=== PATIENT | male | born 1980 | race Caucasian/White ===

== ENCOUNTER 2025-02-23 12:21 | Outpatient (CLI) | payer BC ==
[2025-02-23 12:59] LABS: #Basophils 0.06 10x3/uL (0.0-0.2); #Eosinophils 0.20 10x3/uL (0.0-0.5); #Monocytes 0.40 10x3/uL (0.0-1.1); #Neutrophils 3.13 10x3/uL (1.5-8.4); %Basophils 1.0 % (0.0-2.0); %Eosinophils 3.4 % (0.0-6.0); %Lymphocytes 35.8 % (18.0-47.0); %Monocytes 6.8 % (0.0-10.0); %Neutrophils 52.8 % (40.0-75.0); Hematocrit 42.0 % (38.8-50.0); Hemoglobin 14.1 g/dL (13.5-17.5); Mean Corpuscular Hemoglobin 31.3 pg (27.0-33.0); Mean Corpuscular Volume 93.3 fL (81.2-95.1); Platelet Count 230 10x3/uL (150-450); Red Blood Cell (RBC) Count 4.50 10x6/uL (4.32-5.72); White Blood Cell (WBC) Count 5.92 10x3/uL (3.5-10.5)
[2025-02-23 13:48] LABS: ALT (SGPT) 33 U/L (Less than 45); AST (SGOT) 36 U/L (11-34); Albumin 4.1 g/dL (3.1-4.5); Alkaline Phosphatase 47 U/L (40-110); Anion Gap 11 mmol/L (10-20); BUN (Urea Nitrogen) 21 mg/dL (8.9-20.6); Bilirubin, Direct 0.2 mg/dL (0.1-0.3); Bilirubin, Total 0.5 mg/dL (0.3-1.2); Calc. Creatinine Clearance 0 mL/min (70-130); Calcium 9.3 mg/dL (7.8-10.44); Carbon Dioxide 27 mmol/L (22-29); Chloride 107 mmol/L (98-107); Glucose 66 mg/dL (70-105); Potassium 4.1 mmol/L (3.5-5.1); Sodium 141 mmol/L (136-145)
== END 2025-02-23 12:22 | disposition home or self-care (01) ==
LOC: CSHLAB 12:21
PROVIDERS: ATTEND Surgery
DX: Z01.818 Encounter for other preprocedural examination (principal); K80.20 Calculus of gallbladder without cholecystitis without obstruction; R94.31 Abnormal electrocardiogram [ECG] [EKG]
CPT/HCPCS: 80048; 80076; 85025; 93005; 93010

== ENCOUNTER 2025-03-01 05:59 | Day surgery (SDC) | payer BC ==
[2025-02-23 12:37] VITALS: BMI 31.5
[2025-03-01] MEDS ORDERED: CEFAZOLIN 2 GM VIAL ONE (06:48)
[2025-03-01] MEDS ORDERED: Bupivacaine/Epinephrine 0.25% 30 ML VIAL ONE (06:49)
[2025-03-01] MEDS ORDERED: PROPOFOL 20 ML ONE (06:55)
[2025-03-01] MEDS ORDERED: Rocuronium Bromide 10 MG/ML (10ML VIAL) ONE (06:55)
[2025-03-01] MEDS ORDERED: Lidocaine 1% PF 5 ML VIAL ONE (06:55)
[2025-03-01] MEDS ORDERED: Ondansetron PF 4 MG/2 ML Vial ONE (07:31)
[2025-03-01] MEDS ORDERED: Ketorolac Tromethamine 30 MG (1 mL) VIAL ONE (07:54)
[2025-03-01] MEDS ORDERED: SUGAMMADEX SODIUM 200 MG/2 ML VIAL ONE (07:54)
[2025-03-01] MEDS ORDERED: Calcium Chloride 1 GM/10 ML Abboject SYRINGE ONE (07:54)
[2025-03-01] MEDS ORDERED: HYDROcodone/Acetaminophen 5/325 mg Tablet ONE (09:12)
== END 2025-03-01 09:45 | disposition home or self-care (01) ==
LOC: CSHSDC 05:59
PROVIDERS: ATTEND Surgery
PROC: 0FT44ZZ Resection of Gallbladder, Percutaneous Endoscopic Approach (ICD-10-PCS; principal; 2025-03-01)
DX: K80.10 Calculus of gallbladder with chronic cholecystitis without obstruction (principal)
CPT/HCPCS: 47562; C9776; 88304; J1100; J1885; J2405; J2704; J3010